=== PATIENT | male | born 1955 | race Caucasian/White ===

== ENCOUNTER 2017-01-12 04:34 | Inpatient (IN) ==
[2017-01-10 09:32] LABS: MANUAL DIFF NEEDED? NO
[2017-01-10 09:33] LABS: URINE MICRO REVIEW NEEDED? NO; URINE SOURCE CLEAN CATCH
[2017-01-10 09:50] LABS: BASO% 0.4 % (0.0-0.8); EOS# 0.15 X1000 (0.0-0.7); EOS% 2.2 % (0.0-10.0); HEMATOCRIT 51.9 % (42.0-52.0); HEMOGLOBIN 17.8 g/dL (14.0-18.0); LYMPH# 1.96 X1000 (1.2-3.4); LYMPH% 29.3 % (20.5-51.1); MCH 28.7 PG (27-31); MCHC 34.3 g/dL (33-37); MCV 83.7 FL (81-99); MONO# 0.45 X1000 (0.11-0.59); MONO% 6.7 % (1.7-9.3); MPV 10.6 FL (7.4-10.4); NEUT% 61.4 % (42.2-75.2); PLT 230 X1000 (130-400)
[2017-01-10 09:52] LABS: BILIRUBIN URINE NEGATIVE (NEGATIVE); BLOOD URINE NEGATIVE (NEGATIVE); COLOR YELLOW; GLUCOSE URINE NEGATIVE (NEGATIVE); LEUKOCYTES URINE NEGATIVE (NEGATIVE); NITRITE URINE NEGATIVE (NEGATIVE); PROTEIN URINE TRACE mg/dL (NEGATIVE); SP GRAVITY URINE 1.017; TURBIDITY URINE CLEAR (CLEAR); UROBILINOGEN URINE 2 mg/dL (NORMAL)
[2017-01-10 09:53] LABS: UR EPITHELIAL CELLS <10 /HPF (<10); URINE BACTERIA NEGATIVE /HPF; URINE RBC <10 /HPF (<10); URINE WBC <10 /HPF (<10)
[2017-01-10 10:07] LABS: INR 0.99; PROTIME 10.4 Seconds (9.2-11.7); PTT 28.9 Seconds (22.0-36.0)
[2017-01-10 10:20] LABS: CALCIUM 9.3 mg/dL (8.8-10.2); POTASSIUM 3.9 mmol/L (3.5-5.1)
[2017-01-12] MEDS ORDERED: REGLAN ONE (11:34)
[2017-01-12] MEDS ORDERED: LYRICA ONE (11:34)
[2017-01-12] MEDS ORDERED: PEPCID ONE (11:34)
[2017-01-12] MEDS ORDERED: LR 1,000 ML ONE (11:35)
[2017-01-12] MEDS ORDERED: CELEBREX ONE (11:35)
[2017-01-12] MEDS ORDERED: KEFZOL 2 GM/D5W 2 GM/50 ML IVPB ONE (11:35)
[2017-01-12] MEDS ORDERED: COLACE ONE (11:54)
[2017-01-12] MEDS ORDERED: DIPRIVAN 1% 500 MG/50 ML BOTTLE ONE (13:28)
[2017-01-12] MEDS ORDERED: DURAMORPH ONE (13:51)
[2017-01-12] MEDS ORDERED: CYKLOKAPRON 1,000 MG/NS 1,000 MG/100 ML IVPB ONE (13:51)
[2017-01-12] MEDS ORDERED: SODIUM CHLORIDE 0.9% ONE (13:51)
[2017-01-12] MEDS ORDERED: VANCOMYCIN ONE (13:51)
[2017-01-12] MEDS ORDERED: TORADOL ONE (13:51)
[2017-01-12] MEDS ORDERED: EXPAREL 1.3% ONE (13:52)
[2017-01-12] MEDS ORDERED: NEOSPORIN G.U. IRRIGANT ONE (13:52)
[2017-01-12] MEDS ORDERED: MARCAINE 0.25% PF/EPI 1:200,000 ONE (13:54)
[2017-01-12] MEDS ORDERED: VERSED ONE (14:10)
[2017-01-12] MEDS ORDERED: FENTANYL ONE (14:10)
[2017-01-12] MEDS ORDERED: ROBINUL ONE (14:40)
[2017-01-12] MEDS ORDERED: OFIRMEV 1000 MG/ISOTONIC SOLN 1,000 MG/100 ML BOTTLE ONE (14:43)
[2017-01-12] MEDS ORDERED: DECADRON ONE (14:44)
[2017-01-12 15:48] LABS: URINE MICRO REVIEW NEEDED? NO; URINE SOURCE CATH
[2017-01-12] MEDS ORDERED: EPHEDRINE ONE (15:48)
[2017-01-12 15:52] LABS: BILIRUBIN URINE NEGATIVE (NEGATIVE); BLOOD URINE NEGATIVE (NEGATIVE); COLOR YELLOW; GLUCOSE URINE NEGATIVE (NEGATIVE); LEUKOCYTES URINE NEGATIVE (NEGATIVE); NITRITE URINE NEGATIVE (NEGATIVE); PROTEIN URINE NEGATIVE (NEGATIVE); SP GRAVITY URINE 1.018; TURBIDITY URINE CLEAR (CLEAR); UROBILINOGEN URINE NORMAL (NORMAL)
[2017-01-12 15:53] LABS: UR EPITHELIAL CELLS <10 /HPF (<10); URINE BACTERIA NEGATIVE /HPF; URINE RBC <10 /HPF (<10); URINE WBC <10 /HPF (<10)
[2017-01-12] MEDS ORDERED: XYLOCAINE-MPF 2% ONE ×2 (15:55→16:45)
[2017-01-12] MEDS ORDERED: DIPRIVAN 1% ONE ×2 (15:56→16:44)
[2017-01-12] MEDS ORDERED: LABETALOL ONE (16:18)
[2017-01-12] MEDS ORDERED: NS 1,000 ML ONE (17:18)
[2017-01-12] MEDS ORDERED: OXY IR PO PRN (18:21)
--- NOTE | 2017-01-12 18:21 | Diag Imaging Result Doc PS360 ---
KNEE 1-2 VIEWS-RIGHT - 01/12/2017 INDICATION: Right total knee TECHNIQUE: Two views COMPARISON: None FINDINGS: There is a right total knee arthroplasty. This is a longstem hinged prosthesis, with a long stem tibial component. There is also been patellar resurfacing. No hardware fracture or loosening. Alignment is anatomic. IMPRESSION: No complication. Electronically signed by Jean Carlos Schneider 01/12/2017 6:19 PM
[2017-01-12] MEDS ORDERED: MORPHINE IV PRN (18:22)
[2017-01-12] MEDS ORDERED: ZOFRAN PO PRN (18:22)
[2017-01-12] MEDS ORDERED: MILK OF MAGNESIA PO PRN (18:23)
[2017-01-12] MEDS: NS 1,000 ML IV SCH (18:43)
[2017-01-12] MEDS ORDERED: COLACE PO SCH (21:00)
[2017-01-12] MEDS ORDERED: KEFZOL 1 GM/D5W 1 GM/50 ML IVPB IV SCH (22:00)
[2017-01-12] MEDS: KEFZOL 2 GM/D5W 2 GM/50 ML IVPB IV SCH (22:37)
[2017-01-12] MEDS: PERIDEX MT SCH (22:43)
--- NOTE | 2017-01-12 23:34 | OPERATIVE NOTE ---
PROCEDURE DATE: 01/12/2017 PREOPERATIVE DIAGNOSIS: Osteoarthritis, right knee, with retained hardware, status post open reduction and internal fixation, right proximal tibial plateau fracture a few years ago. POSTOPERATIVE DIAGNOSIS: Osteoarthritis, right knee, with retained hardware, status post open reduction and internal fixation, right proximal tibial plateau fracture a few years ago. PROCEDURE PERFORMED: Right total knee arthroplasty with DePuy Sigma, size 4 femur, size 3 tibial tray with a 37 mm metaphyseal sleeve, and a 75 mm x 12 mm universal fluted stem , 10 mm rotating platform tibial insert, and a 35 mm round dome patella. SURGEON: Nazario Camacho MD 1ST CRIME SCENE SPECIALIST: SARABJIT Croft 2ND CRIME SCENE SPECIALIST: SARABJIT Reyna ANESTHESIA: Spinal. IV FLUIDS: 2700 mL lactated Ringer's. ESTIMATED BLOOD LOSS: 30 mL. TOURNIQUET TIME: 120 minutes. INDICATIONS: She has developed worsening pain and discomfort over time and his pain has progressed to affect his activities of daily living. X-rays revealed degenerative osteoarthritis and an indwelling proximal tibia plateau plate. The recommendation was to proceed with right total knee arthroplasty and removal of hardware. The risks and benefits of surgery were explained, including the risks of anesthesia, , bleeding, infection, failure to relieve pain, postoperative stiffness, nerve injury, blood clots, and other imponderables. All questions were answered. The patient and family wished to proceed with surgery. DETAILS OF OPERATION: The patient was taken to the operating room and placed supine on the operating table. Once adequate anesthesia was obtained, the patient's right lower extremity was subsequently prepped and draped in usual sterile fashion. An Esmarch was used to exsanguinate the right lower extremity. The tourniquet was inflated to 350 mmHg. A standard anterior incision was made with a skin knife. Medial and lateral skin envelopes were developed. Attention was then turned to the lateral proximal tibia, where the palpable hardware was identified. The incision was carried down through the fascia just lateral to the tibial crest and extended proximally overlying the plate. After adequate elevation had been performed and the plate was identified, the screws were then removed and the plate was removed without difficulty. The wound was copiously irrigated. Suture of #1 Vicryl was used to repair the fascia in a running fashion. Attention was turned to the knee where a parapatellar arthrotomy was performed. The patellar fat pad was excised. A retractor was then placed. The proximal tibia was then resected using freehand technique. The ACL and PCL were released prior to this. After this had been performed, intramedullary reaming was then conducted up to a size 12 mm. The proximal tibia was then overreamed. Broaching was then conducted up to a size 37 mm metaphyseal sleeve. Metaphyseal tray, metaphyseal sleeve, and stem were impacted in position and appeared to have a good fit. Attention was then turned to the distal femur, where, approximately 1 cm anterior to the PCL insertion, a starting reamer was passed. An intramedullary guide was then placed in position. The distal femoral cutting block was pinned in position. A distal femoral cut was then performed. After this had been performed, the size of the femoral component was determined to be a size 4. The intramedullary guide was then placed back into position and the box cutting guide was placed. Rotation was set with the knee flexed to 90 degrees and a spacer block placed on the tibial tray and the cutting block was pinned into position. Anterior, posterior and chamfer cuts were then made. After this had been performed, a box cutting guide was placed in position. A box cut was performed. A trial component was then placed. A trial tibial insert was then placed. It appeared to be tight in both flexion and extension. Therefore, the trial tibial tray and stem and metaphysis sleeve were removed. The metaphyseal broach handle was countersunk a few millimeters and the proximal tibia was resected once again. The trial was then placed back into position and this was the femoral component and it had good soft tissue balancing. The patella had been everted earlier and was resected in the standard fashion. A size 35 appeared to be the correct size. It had good patellofemoral tracking. Trial components were then removed. Copious irrigation was performed with antibiotic pulsatile lavage. Vancomycin was mixed with cement on the back table. The tibial construct was assembled on the back table. Cement was then placed on the superior aspect of the proximal tibia and the size 3 tibial tray with the size 37 mm metaphyseal sleeve and a 75 x 12 universal fluted stem was impacted in position. Excess cement was removed with a [place]. The femoral component was then placed and cemented in the standard fashion. A trial tibial insert was placed and axial loading full extension was maintained while the cement cured. The patellar component was cemented in the standard fashion. A patellar clamp was placed. While the cement was curing, Exparel was placed in the deep soft tissue as well as the subcutaneous tissue. The size 10 mm appeared to be the correct size. The peripheral cement was removed with a small osteotome. The trial tibial insert was then placed. Exparel was placed in the deep posterior capsule. The wound was copiously irrigated once again. A 10 mm rotating platform tibial insert was then placed. The knee was then carried through range of motion with good range of motion and good soft tissue balancing. A 1/8-inch Hemovac drain was placed. It was not sewn in. Copious irrigation was then performed once again with antibiotic pulsatile lavage. Suture of #1 Vicryl was used to repair the arthrotomy, followed by 2-0 Vicryl to repair the subcutaneous tissue and skin kavita. Adaptic, sterile 4 x 4's, Webril, a cryo unit, and an Anam wrap were applied to the right lower extremity. The patient tolerated the procedure well with no complications and was transferred to the recovery room in stable condition. cc: Nazario Camacho MD MTDD
[2017-01-12] MEDS: OFIRMEV 1000 MG/ISOTONIC SOLN 1,000 MG/100 ML BOTTLE IV SCH (23:35)
[2017-01-13] MEDS: NS 1,000 ML IV SCH
[2017-01-13] MEDS: KEFZOL 2 GM/D5W 2 GM/50 ML IVPB IV SCH (05:35)
[2017-01-13] MEDS: OFIRMEV 1000 MG/ISOTONIC SOLN 1,000 MG/100 ML BOTTLE IV SCH (05:35)
[2017-01-13] MEDS ORDERED: XARELTO PO SCH (06:00)
[2017-01-13 06:23] LABS: HEMATOCRIT 42.9 % (42.0-52.0); HEMOGLOBIN 14.7 g/dL (14.0-18.0)
[2017-01-13 06:54] LABS: CALCIUM 8.4 mg/dL (8.8-10.2); POTASSIUM 4.3 mmol/L (3.5-5.1)
--- NOTE | 2017-01-13 07:38 | PROGRESS NOTE ---
DATE: 01/13/2017 SUBJECTIVE: The patient is a pleasant, 61-year-old male who is 1 day status post right total knee arthroplasty and removal of hardware of the proximal tibia. He is currently resting comfortably. He has no complaints. PHYSICAL EXAMINATION: His right lower extremity dressing is intact. His calf is soft. He is neurovascularly intact distally. He has active dorsiflexion and plantarflexion. LABORATORY DATA: His hemoglobin and hematocrit are pending. IMPRESSION: Postoperative day #1 status post right total knee arthroplasty. PLAN: At this point, discussed treatment options with the patient and family. At this, we will change his dressing, and discontinue his drain and Garcia. We will also Hep-Lock his IV. We will mobilize with physical therapy. We will consult social and political studies professor for discharge planning and see the patient progresses with physical therapy. All questions were answered. cc: Nazario Camacho MD
[2017-01-13 08:46] VITALS: BP 126/60
[2017-01-13] MEDS ORDERED: SUBOXONE 8 MG/2 MG SL SCH (09:00)
[2017-01-13] MEDS ORDERED: PEPCID PO SCH (09:00)
[2017-01-13] MEDS ORDERED: TOPROL XL PO SCH (09:00)
[2017-01-13] MEDS ORDERED: MIRALAX PO SCH (09:00)
[2017-01-13] MEDS ORDERED: PRINIVIL PO SCH (09:00)
[2017-01-13] MEDS: PERIDEX MT SCH (10:22)
[2017-01-13] MEDS ORDERED: TYLENOL PO PRN (11:00)
== END 2017-01-13 15:07 | disposition home health service (06) ==
LOC: SURHOLD 04:34 → 4N 16:42
PROVIDERS: ADMIT Orthopaedic Surgery Adult Reconstructive Orthopaedic Surgery; ATTEND Orthopaedic Surgery Adult Reconstructive Orthopaedic Surgery